=== PATIENT | female | born 1955 | race Caucasian/White ===

== ENCOUNTER 2023-03-27 08:42 | Day surgery (SDC) | payer MEDICARE, OTHER ==
--- NOTE | 2023-03-25 12:03 | HP ---
DATE: 03/27/2023 HISTORY OF PRESENT ILLNESS: Patient is a 67 year-old female who presents for endoscopy. Apparently, the patient was supposed to have a colonoscopy yearly for a carcinoid tumor. Patient has had a history of breast cancer. It appears that the patient has had breast cancer twice in her lifetime. At some point and time, the patient has been diagnosed with some liver metastasis. She presents for endoscopic evaluation. PAST MEDICAL HISTORY: Hypertension, anxiety, depression, breast cancer, carcinoid tumor colon with metastasis. CURRENT MEDICATIONS: Tizanidine, doxepin, Prilosec, losartan, paroxetine, Lyrica. ALLERGIES: NONE REPORTED. PAST SURGERIES: Mastectomy, , liver resection, colon resection, hip replacement. SOCIAL HISTORY: Occasional alcohol. FAMILY HISTORY: Hypertension. REVIEW OF SYSTEMS: CONSTITUTIONAL: Denies fever or chills. CHEST: Denies shortness of breath. CVS: Denies chest pain. ABDOMEN: Denies abdominal pain. PHYSICAL EXAMINATION: GENERAL: No acute distress. CHEST: Nonlabored. No shortness of breath. CVS: Regular rate and rhythm. ABDOMEN: Soft. IMPRESSION: 1. 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 PLAN: Colonoscopy with Dr. Mark. Zamora. This report was dictated for Dr. Zamora by Jennifer Smith NP.
[2023-03-27] MEDS ORDERED: Lactated Ringers 1,000 ML IV SCH (09:00)
[2023-03-27] MEDS ORDERED: DIPRIVAN 200 MG/20 ML IV ONE ×2 (11:32→11:50)
[2023-03-27] MEDS ORDERED: Xylocaine-Mpf 2% 5 Ml Vial ONE (11:32)
[2023-03-27] MEDS ORDERED: Versed 2 MG/2 ML Injection ONE (11:33)
[2023-03-27 12:33] VITALS: RESP 16; TEMP 97.1
[2023-03-27 12:45] VITALS: BP 157/73; PULSE 60; O2SAT 94
--- NOTE | 2023-03-27 12:54 | OP ---
SURGERY DATE: 03/27/2023 SURGERY TIME: 114 PREOPERATIVE DIAGNOSIS: 1. PATIENT HAS HISTORY OF CARCINOID TUMOR WITH METASTASIS. POSTOPERATIVE DIAGNOSIS: 1. COLONOSCOPY SATISFACTORY. THERE WERE TWO SMALL POLYPS IN THE DISTAL SIGMOID. PROCEDURE: 1. Colonoscopy complete to cecum with hot polypectomy X 2, I believe 1 jar. SURGEON: José Zamora M.D. ANESTHESIA: General. COMPLICATIONS: None. CONDITION: Stable. OPERATIVE PROCEDURE: Patient taken to endoscopy. Anal digital examination satisfactory. Scope introduced. Anus, rectum, sigmoid. Scope advanced over to the cecum. The base of the cecum, ileocecal valve, appendiceal area normal. Ascending, hepatic, transverse, splenic, descending, sigmoid, rectum, anus. At the distal sigmoid, there were two small 4 mm polyps taken with hot biopsy forceps and I believe they were submitted in 1 jar.
== END 2023-03-27 13:00 | disposition home or self-care (01) ==
LOC: SDC 08:42
PROVIDERS: ATTEND Surgery
DX: Z08 Encounter for follow-up examination after completed treatment for malignant neoplasm (principal); Z85.038 Personal history of other malignant neoplasm of large intestine; Z85.3 Personal history of malignant neoplasm of breast; K63.5 Polyp of colon
CPT/HCPCS: J2250; J2704